=== PATIENT | male | born 1970 | race Caucasian/White ===

== ENCOUNTER 2017-07-30 22:49 | Emergency (ER) | payer OTHER ==
[~2017-07-30] VITALS: Ht 177.8 cm; Wt 76.5 kg
[2017-07-30 23:02] VITALS: BP 115/71; PULSE 90; RESP 18; TEMP 98.7; O2SAT 99
[2017-07-30] MEDS ORDERED: ONDANSETRON HCL 4 MG/2 ML VIAL IV ONE ×2 (23:15→23:45)
[2017-07-30] MEDS ORDERED: SODIUM CHLORIDE 0.9% FLUSH 10 ML FLUSH IV FLUSH PRN (23:15)
--- NOTE | 2017-07-30 23:17 | PD ---
HPI Chief Complaint: GI Complaint Time Seen by Provider: 23:08 Travel History International Travel<30 days: No Contact w/Intl Traveler<30days: No Traveled to known affect area: No History of Present Illness HPI The patient is a 46-year-old male that is vacationing here from [place]. He had nausea, vomiting and diarrhea today. He vomited 3 times today. He does have a history of pancreatitis and diverticulitis. He has had an appendectomy. He still has his gallbladder. He states he drank 5 beers last night. He states he has had chills but has not recorded a fever at all. He denies vomiting any blood. PFSH Past Medical History ?: Not Social History Tobacco Use: Yes Allergies-Medications (Allergen,Severity, Reaction): Coded Allergies: ibuprofen (Verified Allergy, Severe, 07/30/17) Reported Meds & Prescriptions Reported Meds & Active Scripts Active Percocet (Oxycodone-Acetaminophen) 5-325 mg Tab 1 Tab PO Q6H PRN Omeprazole 20 Mg Tab 20 Mg PO DAILY Phenergan (Promethazine HCl) 25 Mg Tablet 25 Mg PO Q6H PRN Review of Systems Except as stated in HPI: all other systems reviewed are Neg Physical Exam Narrative GENERAL: The patient is alert, moderately dehydrated appearing in slight apparent distress with his abdominal discomfort. His vital signs are normal. SKIN: Focused skin assessment warm/dry. HEAD: Atraumatic. Normocephalic. EYES: Pupils equal and round. No scleral icterus. No injection or drainage. ENT: No nasal bleeding or discharge. Mucous membranes pink and moist. NECK: Trachea midline. No JVD. CARDIOVASCULAR: Regular rate and rhythm. No murmur appreciated. RESPIRATORY: No accessory muscle use. Clear to auscultation. Breath sounds equal bilaterally. GASTROINTESTINAL: Abdomen soft, with tenderness to direct palpation in the midline epigastrium, nondistended. Hepatic and splenic margins not palpable. A well-healed appendectomy scar is noted and there is no guarding or rebound present. MUSCULOSKELETAL: No obvious deformities. No clubbing. No cyanosis. No edema. NEUROLOGICAL: Awake and alert. No obvious cranial nerve deficits. Motor grossly within normal limits. Normal speech. PSYCHIATRIC: Appropriate mood and affect; insight and judgment normal. Data Data Last Documented VS Vital Signs Date Time Temp Pulse Resp B/P (MAP) Pulse Ox O2 Delivery O2 Flow Rate FiO2 07/31/17 01:06 80 16 127/78 (94) 99 Room Air 07/30/17 23:02 98.7 Orders Orders Complete Blood Count With Diff (07/30/17 23:13) Comprehensive Metabolic Panel (07/30/17 23:13) Lipase (07/30/17 23:13) Urinalysis - C+S If Indicated (07/30/17 23:13) Iv Access Insert/Monitor (07/30/17 23:13) Ecg Monitoring (07/30/17 23:13) Oximetry (07/30/17 23:13) Sodium Chloride 0.9% Flush (Ns Flush) (07/30/17 23:15) Sodium Chlor 0.9% 1000 Ml Inj (Ns 1000 M (07/30/17 23:15) Ondansetron Inj (Zofran Inj) (07/30/17 23:15) Ondansetron Inj (Zofran Inj) (07/30/17 23:45) Metoclopramide Inj (Reglan Inj) (07/31/17 00:30) Acetaminophen (Tylenol) (07/31/17 00:30) Pantoprazole Inj (Protonix Inj) (07/31/17 00:45) Famotidine Inj (Pepcid Inj) (07/31/17 00:45) Hydromorphone Pf Inj (Dilaudid Pf Inj) (07/31/17 01:15) Labs Laboratory Tests Test 07/30/17 23:30 07/31/17 00:30 White Blood Count 9.0 TH/MM3 Red Blood Count 5.56 MIL/MM3 Hemoglobin 16.8 GM/DL Hematocrit 50.3 % Mean Corpuscular Volume 90.4 FL Mean Corpuscular Hemoglobin 30.3 PG Mean Corpuscular Hemoglobin Concent 33.5 % Red Cell Distribution Width 12.2 % Platelet Count 222 TH/MM3 Mean Platelet Volume 7.4 FL Neutrophils (%) (Auto) 86.3 % Lymphocytes (%) (Auto) 5.5 % Monocytes (%) (Auto) 3.0 % Eosinophils (%) (Auto) 1.6 % Basophils (%) (Auto) 3.6 % Neutrophils # (Auto) 7.8 TH/MM3 Lymphocytes # (Auto) 0.5 TH/MM3 Monocytes # (Auto) 0.3 TH/MM3 Eosinophils # (Auto) 0.1 TH/MM3 Basophils # (Auto) 0.3 TH/MM3 CBC Comment DIFF FINAL Differential Comment Blood Urea Nitrogen 18 MG/DL Creatinine 1.00 MG/DL Random Glucose 105 MG/DL Total Protein 7.8 GM/DL Albumin 4.0 GM/DL Calcium Level 9.1 MG/DL Alkaline Phosphatase 72 U/L Aspartate Amino Transf (AST/SGOT) 142 U/L Alanine Aminotransferase (ALT/SGPT) 72 U/L Total Bilirubin 1.1 MG/DL Sodium Level 137 MEQ/L Potassium Level 3.6 MEQ/L Chloride Level 104 MEQ/L Carbon Dioxide Level 23.5 MEQ/L Anion Gap 10 MEQ/L Estimat Glomerular Filtration Rate 80 ML/MIN Lipase 120 U/L Urine Color YELLOW Urine Turbidity CLEAR Urine pH 7.5 Urine Specific University 1.027 Urine Protein TRACE mg/dL Urine Glucose (UA) NEG mg/dL Urine Ketones 15 mg/dL Urine Occult Blood NEG Urine Nitrite NEG Urine Bilirubin NEG Urine Leukocyte Esterase NEG Urine RBC 0-3 /hpf Urine WBC /hpf Urine Squamous Epithelial Cells 0-5 /hpf Urine Mucus FEW /lpf Microscopic Urinalysis Comment CULT NOT INDICATED MDM Medical Decision Making Medical Screen Exam Complete: Yes Emergency Medical Condition: Yes Medical Record Reviewed: Yes Interpretation(s) The CBC is normal except for 86% neutrophils. The complete metabolic profile shows a GFR of 80, total bilirubin of 1.1, AST of 72 but is otherwise normal. The lipase is normal. The urine shows a specific gravity 1.027 and 15 ketones. It is otherwise negative and culture is not indicated. Differential Diagnosis Viral gastroenteritis, alcoholic pancreatitis, gallstone pancreatitis, dehydration, electrolyte disorder, anemia Narrative Course The patient likely has viral gastroenteritis. There is no laboratory evidence for pancreatitis. He also has moderate dehydration. This is suggested clinically, historically and the urine shows a high specific gravity with 15 ketones. It is now 12 midnight and the patient feels much better and is successfully eating ice chips. He still has been unable to give us urine despite having been given 1 L of saline IV. It is now 0124 and the patient now has some epigastric pain. His nausea is gone. He was offered admission to the hospital but declined, he wants to try it at home first. He is told return if he cannot make it at home. He has had 2 L of fluid as well as by mouth ice chips. Diagnosis Primary Impression: Gastroenteritis Additional Impression: Moderate dehydration Additional Instructions: Take the Phenergan regularly, don't wait for the nausea. Return to the emergency department if you think you need admission and cannot make it at home. Drink nothing but clear liquids like Gatorade in the first 24-48 hours. No solid foods, particularly nothing with any fat. Med/Other Pt SpecificInfo: Prescription(s) given Scripts Oxycodone-Acetaminophen (Percocet) 5-325 mg Tab 1 TAB PO Q6H Y for PAIN, #15 TAB 0 Refills Prov: Trevor Thomas MD 07/31/17 Omeprazole (Omeprazole) 20 Mg Tab 20 MG PO DAILY, #30 TAB 0 Refills Prov: Trevor Thomas MD 07/31/17 Promethazine (Phenergan) 25 Mg Tablet 25 MG PO Q6H Y for NAUSEA OR VOMITING, #30 TAB 0 Refills Prov: Trevor Thomas MD 07/31/17 Disposition: 01 DISCHARGE HOME Condition: Stable Trevor Thomas MD Jul 30, 2017 23:17
[2017-07-30] MEDS: SODIUM CHLOR 0.9% 1000 ML INJ 1,000 ML IV SCH ×2 (23:29→23:49)
[2017-07-30 23:39] LABS: AUTOMATED NEUTROPHIL # 7.8 TH/MM3 (1.8-7.7); BASOPHIL # 0.3 TH/MM3 (0-0.2); BASOPHIL % 3.6 % (0.0-2.0); EOSINOPHIL # 0.1 TH/MM3 (0-0.4); EOSINOPHIL % 1.6 % (0.0-4.0); HEMATOCRIT 50.3 % (39.0-51.0); HEMO FLAGS DIFF FINAL; LYMPH % 5.5 % (9.0-44.0); LYMPHOCYTE # 0.5 TH/MM3 (1.0-4.8); MEAN CELL VOLUME 90.4 FL (80.0-100.0); MEAN CORPUSCULAR HEMOGLOBIN 30.3 PG (27.0-34.0); MEAN CORPUSCULAR HGB CONC 33.5 % (32.0-36.0); NEUT % 86.3 % (16.0-70.0); PLATELET COUNT 222 TH/MM3 (150-450); RED BLOOD COUNT 5.56 MIL/MM3 (4.50-5.90); RED CELL DISTRIBUTION WIDTH 12.2 % (11.6-17.2)
[2017-07-30 23:47] LABS: CHLORIDE 104 MEQ/L (98-107); POTASSIUM 3.6 MEQ/L (3.5-5.1); SODIUM (NA) 137 MEQ/L (136-145)
[2017-07-30 23:51] LABS: ANION GAP 10 MEQ/L (5-15); BICARBONATE 23.5 MEQ/L (21.0-32.0); BLOOD UREA NITROGEN 18 MG/DL (7-18)
[2017-07-30 23:54] LABS: ALT (GPT) 72 U/L (12-78); AST (GOT) 142 U/L (15-37); GLOMERULAR FILTRATION RATE 80 ML/MIN (>89)
[2017-07-30 23:55] LABS: TOTAL BILIRUBIN ADULT 1.1 MG/DL (0.2-1.0)
[2017-07-30 23:57] LABS: ALKALINE PHOSPHATASE 72 U/L (45-117)
[2017-07-31] MEDS ORDERED: PROM25TA10 PO (00:14)
[2017-07-31] MEDS ORDERED: ACETAMINOPHEN 500 MG CPLT PO ONE (00:30)
[2017-07-31] MEDS ORDERED: METOCLOPRAMIDE HCL 10 MG/2 ML VIAL IVS ONE (00:30)
[2017-07-31] MEDS ORDERED: OMEP20TA PO (00:41)
[2017-07-31 00:42] LABS: BLOOD, URINE NEG (NEG); GLUCOSE,URINE NEG (NEG); KETONE, URINE 15 mg/dL (NEG); NITRITE,URINE NEG (NEG); PH, URINE 7.5 (5.0-8.5)
[2017-07-31] MEDS ORDERED: PANTOPRAZOLE SODIUM 40 MG VIAL IVP ONE (00:45)
[2017-07-31] MEDS ORDERED: FAMOTIDINE 20 MG/2 ML VIAL IV PUSH ONE (00:45)
[2017-07-31 00:47] LABS: URINE COLOR YELLOW (YELLW/STRAW)
[2017-07-31 00:48] LABS: MUCUS URINE FEW /lpf (OCC); SQUAMOUS EPITHELIAL CELL URINE 0-5 /hpf (0-5)
[2017-07-31 00:49] LABS: COMMENT (UR) CULT NOT INDICATED; CULTURE IF INDICATED CULT NOT INDICATED; RBC, URINE 0-3 /hpf (0-3)
[2017-07-31] MEDS ORDERED: SOMA350T PO (01:03)
[2017-07-31 01:06] VITALS: BP 127/78; PULSE 80; RESP 16; O2SAT 99
[2017-07-31] MEDS ORDERED: PERC5TAB12 PO (01:08)
[2017-07-31] MEDS ORDERED: HYDROmorphone HCL PF 1 MG/ML VIAL IVP ONE (01:15)
[2017-07-31 02:08] VITALS: BP 126/71
== END 2017-07-31 02:15 | disposition home or self-care (01) ==
LOC: PHED 22:49
DX: K52.9 Noninfective gastroenteritis and colitis, unspecified (principal); E86.0 Dehydration
CPT/HCPCS: 80053; 81001; 83690; 85025; 96361; 96374; 96376; 99284; C9113; J1170; J2405; J2765; J7030